=== PATIENT | female | born 1990 | race Caucasian/White ===

== ENCOUNTER 2019-10-18 17:02 | Emergency (ER) | payer OTHER ==
[~2019-10-18] VITALS: Ht 160 cm; Wt 88.5 kg
--- NOTE | 2019-10-18 17:14 | NUR ---
Per report Melyssa Oliveira is a pleasant 29 year old female who presents from home for medication refill, she has a history of bipolar disorder and ran out of her medication took the last pill yesterday. Does not recall the name of her medication but she has been taking it for several years. She states she was arguing with her last night because he wants her to delete her social media accounts and did not sleep well. She feels safe at home. Denies any fever or chills, dizziness, headache, vision changes, neck pain or stiffness, chest pain, shortness of breath, palpitations, weakness, nausea, vomiting, diarrhea, abdominal pain, suicidal or homicidal ideation, denies any auditory visual hallucinations. or other symptoms. She recently moved to [facility] from [place], has not established a primary care physician since relocating.
--- NOTE | 2019-10-18 17:14 | NUR ---
STACIA Wallis examining patient.
--- NOTE | 2019-10-18 17:14 | NUR ---
pT PLACED IN TRIAGE ROOM FOR EXAMINATION
[2019-10-18 17:20] VITALS: BP_SYST 133
--- NOTE | 2019-10-18 17:30 | NUR ---
Patient triaged and placed in waiting room. VSS and patient appears in no acute distress at this time. Awaiting available bed, and MD notified of need for MSE.
[2019-10-18 20:15] VITALS: BP_SYST 116
--- NOTE | 2019-10-18 20:15 | NUR ---
Patient given written and verbal discharge instructions and verbalizes understanding. ER MD discussed with patient the results and treatment provided. Patient in stable condition. ID arm band removed. No IV, No Cath Rx of risperdal given. Patient educated on pain management and to follow up with PMD. Pain Scale 0/10. Opportunity for questions provided and answered. Medication side effect fact sheet provided.
== END 2019-10-18 20:15 | disposition home or self-care (01) ==
LOC: SED 17:02
DX: Z76.0 Encounter for issue of repeat prescription (principal); Z88.6 Allergy status to analgesic agent
CPT/HCPCS: 81025; 99283